=== PATIENT | female | born 1990 | race Asian ===

== ENCOUNTER 2016-12-21 22:46 | Inpatient (IN) | payer SELFPAY ==
[2016-12-21] MEDS ORDERED: OBEPIDURAL* 250 ML ONE (23:44)
[2016-12-21 23:49] LABS: Hematocrit 37 % (35-47); Hemoglobin 12.5 g/dl (12.0-16.0); Mean Corpuscular HGB Conc 34 g/dl (31-36); Mean Corpuscular Hemoglobin 31 pg (27-31); Mean Corpuscular Volume 93 fL (80-97); Mean Platelet Volume 9 um3 (7.4-10.4); Red Blood Count 3.98 10^6/ul (4.0-5.4); Red Cell Distribution Width 13 % (10.5-15); White Blood Count 10.3 10^3/ul (3.5-10.8)
[2016-12-22] MEDS ORDERED: Phenylephrine IV* 40 MCG/ML 10 ML SYRINGE IV PUSH PRN ×2 (00:13)
[2016-12-22] MEDS ORDERED: Famotidine TAB* 20 MG PO PRN (00:13)
[2016-12-22] MEDS ORDERED: Sodium Citrate/Citric Acid* 15 ML UDC PO PRN (00:13)
[2016-12-22] MEDS ORDERED: OBEPIDURAL* 250 ML EPIDURAL SCH (01:00)
[2016-12-22] MEDS ORDERED: Oxytocin in LR* 20 UNITS/1,000 ML BAG IVPB ONE (04:09)
[2016-12-22] MEDS ORDERED: Witch Hazel PAD* JAR TOPICAL PRN (04:34)
[2016-12-22] MEDS ORDERED: Glycerin ADULT SUPP PR PRN (04:34)
[2016-12-22] MEDS ORDERED: Dibucaine 1% 28.35 GM TUBE PR PRN (04:34)
[2016-12-22] MEDS ORDERED: Acetaminop/Codeine 30 MG TAB* 1 TAB (300 MG/30 MG) PO PRN (04:36)
[2016-12-22] MEDS ORDERED: Oxytocin in LR* 20 UNITS/1,000 ML BAG IVPB SCH (05:00)
[2016-12-22] MEDS ORDERED: Simethicone CHEW TAB* 80 MG PO SCH (08:30)
[2016-12-22] MEDS: Docusate CAP* 100 MG PO SCH ×3 (08:49→21:43)
[2016-12-22] MEDS: Ibuprofen TAB* 600 MG PO PRN ×3 (08:54→21:43)
[2016-12-22] MEDS: Acetaminophen TAB* 325 MG PO PRN ×2 (17:32→21:43)
[2016-12-23] MEDS: Acetaminophen TAB* 325 MG PO PRN ×5 (02:28→22:22)
[2016-12-23] MEDS: Ibuprofen TAB* 600 MG PO PRN ×3 (04:58→18:21)
[2016-12-23] MEDS ORDERED: Ferrous Gluconate TAB* 324 MG TAB PO SCH (09:00)
[2016-12-23] MEDS: Docusate CAP* 100 MG PO SCH ×3 (09:50→21:59)
[2016-12-23 10:31] LABS: Hematocrit 35 % (35-47); Hemoglobin 11.6 g/dl (12.0-16.0); Mean Corpuscular HGB Conc 34 g/dl (31-36); Mean Corpuscular Hemoglobin 32 pg (27-31); Mean Corpuscular Volume 94 fL (80-97); Mean Platelet Volume 9 um3 (7.4-10.4); Red Blood Count 3.66 10^6/ul (4.0-5.4); Red Cell Distribution Width 14 % (10.5-15); White Blood Count 10.6 10^3/ul (3.5-10.8)
[2016-12-24] MEDS: Ibuprofen TAB* 600 MG PO PRN ×2 (00:30→06:28)
[2016-12-24] MEDS: Acetaminophen TAB* 325 MG PO PRN ×2 (03:43→08:31)
[2016-12-24] MEDS: Docusate CAP* 100 MG PO SCH (08:31)
[2016-12-24 08:40] VITALS: BP 110/70
== END 2016-12-24 11:50 | disposition home or self-care (01) | DRG 775 ==
LOC: MCHOBOUT 22:46 → MCHOB 23:25
PROVIDERS: ADMIT Obstetrics & Gynecology; ATTEND Obstetrics & Gynecology
PROC: 10E0XZZ Delivery of Products of Conception, External Approach (ICD-10-PCS; principal; 2016-12-22)
PROC: 0KQM0ZZ Repair Perineum Muscle, Open Approach (ICD-10-PCS; 2016-12-22)
PROC: 4A1HXCZ Monitoring of Products of Conception, Cardiac Rate, External Approach (ICD-10-PCS; 2016-12-22)
DX: O34.211 Maternal care for low transverse scar from previous cesarean delivery (principal); O70.1 Second degree perineal laceration during delivery; Z3A.39 39 weeks gestation of pregnancy; Z37.0 Single live birth
CPT/HCPCS: 36415; 85025; 86850; 86900; 86901; A9270-GY